=== PATIENT | male | born 1955 | race African-American/Black ===

== ENCOUNTER 2016-10-10 09:10 | Emergency (ER) | payer OTHER ==
[2016-10-10 09:17] VITALS: TEMP 98.3; BMI 29.8
[2016-10-10] MEDS ORDERED: PIPERACILLIN/TAZOB 4.5 GM/100 ML PRE-DOCKED IVPB ONE (10:00)
[2016-10-10] MEDS ORDERED: VANCOMYCIN 1,000 MG in DEXTROSE 5%-WATER - 250 ML IVPB ONE (10:04)
[2016-10-10] MEDS ORDERED: VANCOMYCIN 1 GRAM (PRE-DOCKED) 250 ML IVPB ONE (10:15)
[2016-10-10] MEDS ORDERED: PIPERACILLIN/TAZOB 4.5 GM 100 ML IVPB ONE (10:15)
[2016-10-10 10:18] LABS: BASOPHIL 1.1 % (0-2.0); EOSINOPHIL 1.7 % (0-4.5); MCH 28.9 pg (25.7-33.7); MCHC 32.7 g/dl (32.0-35.9); MEAN CELL VOLUME 88.2 fl (80-96); MEAN PLT VOLUME 8.1 fl (7.5-11.1); NEUTROPHILS 63.9 % (42.8-82.8); PLATELET COUNT 314 K/MM3 (134-434); RDW 13.8 % (11.9-15.9); WHITE BLOOD COUNT 9.8 K/mm3 (4.0-10.0)
--- NOTE | 2016-10-10 10:27 | PDOC ---
History of Present Illness - General Chief Complaint: Wound Infection Stated Complaint: LEG PAIN, POSSIBLE INFECTION Time Seen by Provider: 10/10/16 09:22 History Source: Patient Exam Limitations: No Limitations - History of Present Illness Initial Comments: 10/10/16 10:26 61-year-old male with history of diabetes presents to the ED with worsening once the right foot. Patient states was walking at night when he bumped into a speaker striking the tip of his right foot onto the item. Patient states initially had no pain but then developed a blister yesterday and now draining fluid concerning for infection. Patient also states redness and mild swelling to the area. Patient states last BGM was 114. Patient has history of right TMA done in 2013 with no postop complications. Patient is not followed by any physician in [place] and recently relocated here from [place]. Patient denies any sensory changes to the area, radiation of pain, fever or chills. Timing/Duration: getting worse Severity: moderate Associated Symptoms: denies: denies symptoms Past History - Travel Traveled outside of the country in the last 30 days: No - Past Medical History Allergies/Adverse Reactions: Allergies Allergy/AdvReac Type Severity Reaction Status Date / Time No Known Allergies Allergy Verified 10/10/16 09:18 Home Medications: Ambulatory Orders NK [No Known Home Medication] 10/10/16 Diabetes: Yes HTN: Yes - Psycho/Social/Smoking Cessation Hx Anxiety: No Suicidal Ideation: No Smoking History: Never smoked Hx Alcohol Use: No Drug/Substance Use Hx: No Substance Use Type: None Patient Lives Alone: No Lives with/in: spouse/SO Review of Systems - Review of Systems Able to Perform ROS?: No Constitutional: No: Symptoms Reported Respiratory: No: Symptoms reported ABD/GI: No: Symptoms Reported : No: Symptoms Reported Musculoskeletal: No: Symptoms Reported Integumentary: Yes: Erythema, Other (draining blister) Neurological: No: Symptoms reported Endocrine: No: Symptoms Reported Hematologic/Lymphatic: No: Symptoms Reported *Physical Exam - Vital Signs Last Vital Signs Temp Pulse Resp BP Pulse Ox 98.3 F 69 20 124/66 100 10/10/16 09:14 10/10/16 09:14 10/10/16 09:14 10/10/16 09:14 10/10/16 09:14 - Physical Exam General Appearance: Yes: Nourished, Appropriately Dressed. No: Apparent Distress HEENT: positive: EOMI, DEANDRA. negative: Pale Conjunctivae Respiratory/Chest: positive: Lungs Clear, Normal Breath Sounds. negative: Respiratory Distress, Accessory Muscle Use Cardiovascular: positive: Regular Rhythm, Regular Rate. negative: Murmur Gastrointestinal/Abdominal: positive: Soft. negative: Tenderness Integumentary: positive: Swelling (with erythema to the sole of right foot surrounding a 2cm draining blister. Serosangious fluid draining from small opening on blister. Mild edema to distal aspect of foot. Pt with rt TMA. ) Neurologic: positive: Normal Mood/Affect, Motor Strength 5/5 (ambulatory) ED Treatment Course - LABORATORY CBC & Chemistry Diagram: 10/10/16 10:10 10/10/16 10:10 - RADIOLOGY Radiology Studies Ordered: Category Date Time Status CHEST X-RAY PORTABLE* [RAD] Stat Radiology 10/10/16 09:59 Taken FOOT-RIGHT [RAD] Stat Radiology 10/10/16 10:08 Ordered Medical Decision Making - Medical Decision Making 10/10/16 10:05 Patient with history of right TMA and diabetes presents with wound to the distal aspect of right foot. Patient initially started as a blister now draining developing erythema and edema. Patient on exam had a draining blister that was slightly boggy to touch. Patient concerning for sepsis versus osteal. Patient ordered for labs, septic workup, will culture and foot x-ray. Patient also ordered for Vanco and Zosyn. 10/10/16 10:36 chest x-ray neg Laboratory Tests 10/10/16 10/10/16 10/10/16 10:10 10:10 10:30 WBC 9.8 Hgb 11.1 L Hct 33.9 L Plt Count 314 Neutrophils % 63.9 INR 1.13 Lactic Acid Pending 10/10/16 12:22 Laboratory Tests 10/10/16 10/10/16 10/10/16 10:10 10:30 10:30 Sodium 132 L Potassium 4.7 Chloride 100 Carbon Dioxide 23 Anion Gap 9 BUN 35 H Creatinine 3.3 H Creat Clearance w eGFR 19.22 Random Glucose 357 H* Lactic Acid 1.4 AST 18 ALT 30 Alkaline Phosphatase 151 H Total Protein 8.7 H Albumin 3.3 L Urine Protein 2+ H Urine Glucose (UA) 3+ H There are no prior studies for comparison. There is loss of bone density with soft tissue air seen in the anterior aspect of the foot remnant. There are degenerative changes. There is also partial obstruction which appears old of the fifth metatarsal base remnant. 10/10/16 13:53 Patient was seen by the hospitalist, Dr. Patel who hadn't been detailed discussion with the patient in regards to following up with his enterprise cloud architect for debridement. Patient also will follow-up with his PCP to discuss today's visit. Patient will have area redressed and discharged home. *DC/Admit/Observation/Transfer Diagnosis at time of Disposition: Diabetic foot ulcer Qualifiers: Diabetic foot ulcer location: other Laterality: right Non-pressure ulcer stage : unspecified non-pressure ulcer stage - Discharge Dispostion Disposition: HOME Condition at time of disposition: Good - Referrals Referrals: STAFF,NOT ON [Primary Care Provider] - - Patient Instructions Printed Discharge Instructions: DI for Diabetic Foot Ulcer Additional Instructions: Please keep area clean and dry with a sterile dressing. Please wear proper footwear as recommended. Please observe for worsening symptoms and if noted prior to your follow-up with your enterprise cloud architect please return to the nearest ED. Otherwise please follow-up with your enterprise cloud architect and PCP.
[2016-10-10 10:31] LABS: INR 1.13 (0.82-1.09); PROTHROMBIN TIME (PATIENT) 12.5 SEC (9.98-11.88)
[2016-10-10 10:38] LABS: URINE APPEARANCE SLCLOUDY; URINE BILIRUBIN NEGATIVE (NEGATIVE); URINE BLOOD NEGATIVE (NEGATIVE); URINE COLOR LTYELLOW; URINE GLUCOSE (UA) 3+ (NEGATIVE); URINE KETONE NEGATIVE (NEGATIVE); URINE LEUK ESTERASE NEGATIVE (NEGATIVE); URINE NITRITE NEGATIVE (NEGATIVE); URINE UROBILINOGEN NEGATIVE mg/dL (0.2-1.0)
[2016-10-10 10:40] LABS: ALBUMIN 3.3 g/dl (3.4-5.0); ALK PHOS 151 U/L (45-117); ANION GAP 9 (8-16); BILIRUBIN,TOTAL 0.3 mg/dL (0.2-1.0); CALCIUM 9.2 mg/dL (8.5-10.1); CO2 23 mmol/L (21-32); CREATININE 3.3 mg/dL (0.7-1.3); SGOT/AST 18 U/L (15-37); SGPT/ALT 30 U/L (12-78); TOT PROT 8.7 g/dl (6.4-8.2)
[2016-10-10 10:47] LABS: GLUCOSE,RANDOM 357 mg/dL (74-106)
[2016-10-10] MEDS ORDERED: SODIUM CHLORIDE 1,000 ML IV STA (10:47)
[2016-10-10 10:52] LABS: URINE PROTEIN 2+ (NEGATIVE)
[2016-10-10 11:17] LABS: URINE BACTERIA RARE /hpf (NONE SEEN); URINE HYALINE CAST 5 /lpf; URINE MUCUS RARE; URINE RBC 1 /hpf (0-3); URINE WBC 1 /hpf (3-5)
[2016-10-10 14:09] VITALS: BP 118/60; PULSE 64
--- NOTE | 2016-10-10 14:28 | CONSULT ---
Consultation: REQUESTING PROVIDER: CONSULT REQUEST: We have been asked to medically evaluate this patient for RLE plantar cellulitis s/p object falling on foot. HISTORY OF PRESENT ILLNESS: 61 y/o M HTN, DM2 and R TMA and CKD stage unknown. Patient presented to ED after speaker fell on his right forefoot 3 days prior and so he presented with localized pain and drainage from wound. REVIEW OF SYSTEMS: CONSTITUTIONAL: Absent: fever, chills, diaphoresis, generalized weakness, malaise, loss of appetite, weight change HEENT: Absent: rhinorrhea, nasal congestion, throat pain, throat swelling, difficulty swallowing, mouth swelling, ear pain, eye pain, visual changes CARDIOVASCULAR: Absent: chest pain, syncope, palpitations, irregular heart rate, lightheadedness , peripheral edema RESPIRATORY: Absent: cough, shortness of breath, dyspnea with exertion, orthopnea, wheezing, stridor, hemoptysis GASTROINTESTINAL: Absent: abdominal pain, abdominal distension, nausea, vomiting, diarrhea, constipation, melena, hematochezia GENITOURINARY: Absent: dysuria, frequency, urgency, hesitancy, hematuria, flank pain, genital pain MUSCULOSKELETAL: Absent: myalgia, arthralgia, joint swelling, back pain, neck pain SKIN: Absent: rash, itching, pallor HEMATOLOGIC/IMMUNOLOGIC: Absent: easy bleeding, easy bruising, lymphadenopathy, frequent infections ENDOCRINE: Absent: unexplained weight gain, unexplained weight loss, heat intolerance, cold intolerance NEUROLOGIC: Absent: headache, focal weakness or paresthesias, dizziness, unsteady gait, seizure, mental status changes, bladder or bowel incontinence PSYCHIATRIC: Absent: anxiety, depression, suicidal or homicidal ideation, hallucinations. PHYSICAL EXAMINATION Vital Signs - 24 hr 10/10/16 09:14 Temperature 98.3 F Pulse Rate 69 Respiratory 20 Rate Blood Pressure 124/66 O2 Sat by Pulse 100 Oximetry (%) GENERAL: Awake, alert, and fully oriented, in no acute distress. HEAD: Normal with no signs of trauma. EYES: Pupils equal, round and reactive to light, extraocular movements intact, sclera anicteric, conjunctiva clear. No lid lag. EARS, NOSE, THROAT: Ears normal, nares patent, oropharynx clear without exudates. Moist mucous membranes. NECK: Normal range of motion, supple without lymphadenopathy, JVD, or masses. LUNGS: Breath sounds equal, clear to auscultation bilaterally. No wheezes, and no crackles. No accessory muscle use. HEART: Regular rate and rhythm, normal S1 and S2 without murmur, rub or gallop. ABDOMEN: Soft, nontender, not distended, normoactive bowel sounds, no guarding, no rebound, no masses. No hepatomegaly or splenomegaly. MUSCULOSKELETAL: Normal range of motion at all joints. No bony deformities or tenderness. No CVA tenderness. UPPER EXTREMITIES: 2+ pulses, warm, well-perfused. No cyanosis. No clubbing. Cap refill <2 seconds. No peripheral edema. LOWER EXTREMITIES: Right TMA with hyperkeratosis ,3cm plantar hematoma at 1st distal tarsal area with serous drainage, witch is soft and nontender.2+ pulses, warm, perfused. No calf tenderness. No peripheral edema. Left foot longitudinal scar medial aspect. NEUROLOGICAL: Cranial nerves II-XII intact. Normal speech. PSYCHIATRIC: Cooperative. Good eye contact. Appropriate mood and affect. SKIN: Warm, dry, normal turgor, no rashes or lesions noted. Laboratory Results - last 24 hr 10/10/16 10/10/16 10/10/16 10:10 10:10 10:10 WBC 9.8 RBC 3.85 L Hgb 11.1 L Hct 33.9 L MCV 88.2 MCH 28.9 MCHC 32.7 RDW 13.8 Plt Count 314 MPV 8.1 Neutrophils % 63.9 Lymphocytes % 23.2 Monocytes % 10.1 Eosinophils % 1.7 Basophils % 1.1 INR 1.13 Sodium 132 L Potassium 4.7 Chloride 100 Carbon Dioxide 23 Anion Gap 9 BUN 35 H Creatinine 3.3 H Creat Clearance w eGFR 19.22 Random Glucose 357 H* Lactic Acid Calcium 9.2 Total Bilirubin 0.3 AST 18 ALT 30 Alkaline Phosphatase 151 H Total Protein 8.7 H Albumin 3.3 L Urine Color Urine Appearance Urine pH Urine Protein Urine Glucose (UA) Urine Ketones Urine Blood Urine Nitrite Urine Bilirubin Urine Urobilinogen Ur Leukocyte Esterase Urine RBC Urine WBC Ur Epithelial Cells Urine Bacteria Hyaline Casts Urine Mucus Blood Type Antibody Screen 10/10/16 10/10/16 10/10/16 10:10 10:30 10:30 WBC RBC Hgb Hct MCV MCH MCHC RDW Plt Count MPV Neutrophils % Lymphocytes % Monocytes % Eosinophils % Basophils % INR Sodium Potassium Chloride Carbon Dioxide Anion Gap BUN Creatinine Creat Clearance w eGFR Random Glucose Lactic Acid 1.4 Calcium Total Bilirubin AST ALT Alkaline Phosphatase Total Protein Albumin Urine Color Ltyellow Urine Appearance Slcloudy Urine pH 5.0 Urine Protein 2+ H Urine Glucose (UA) 3+ H Urine Ketones Negative Urine Blood Negative Urine Nitrite Negative Urine Bilirubin Negative Urine Urobilinogen Negative Ur Leukocyte Esterase Negative Urine RBC 1 Urine WBC 1 Ur Epithelial Cells Rare Urine Bacteria Rare Hyaline Casts 5 Urine Mucus Rare Blood Type B POSITIVE Antibody Screen Negative ASSESSMENT/PLAN: Dispo: No sign of acute infection, one dose of Vancomycin and as per renal dosing q48h so recommend follow up with podiatry in 2-3 days if no improvement may need debribement. Uncontrolled DM2 patient advised to keep strict diabetic diet and medication adherence. HTN And CKD. Patient counselled on the complications of diabetes and the high risk of dialysis. Follow up with PMD. Thank you for this consultative opportunity. Problem List - Problems (1) Unspecified open wound, right foot, initial encounter Assessment/Plan: s/p trauma Code(s): S91.301A - UNSPECIFIED OPEN WOUND, RIGHT FOOT, INITIAL ENCOUNTER (2) DM2 (diabetes mellitus, type 2) Code(s): E11.9 - TYPE 2 DIABETES MELLITUS WITHOUT COMPLICATIONS Qualifiers: Diabetes mellitus complication status: with neurologic complications Diabetes mellitus complication detail: with autonomic neuropathy (3) HTN (hypertension) Code(s): I10 - ESSENTIAL (PRIMARY) HYPERTENSION Qualifiers: Hypertension type: essential hypertension Qualified Code(s): I10 - Essential (primary) hypertension (4) CKD (chronic kidney disease) stage 4, GFR 15-29 ml/min Code(s): N18.4 - CHRONIC KIDNEY DISEASE, STAGE 4 (SEVERE) Visit type - Emergency Visit Emergency Visit: Yes Care time: The patient presented to the Emergency Department on the above date and was hospitalized for further evaluation of their emergent condition. - New Patient This patient is new to me today: Yes Date on this admission: 10/10/16 - Critical Care Critical Care patient: No
--- NOTE | 2016-10-10 19:38 | EKG ---
Test Reason : Blood Pressure : / mmHG Vent. Rate : 066 BPM Atrial Rate : 066 BPM P-R Int : 150 ms QRS Dur : 076 ms QT Int : 394 ms P-R-T Axes : 054 -21 017 degrees QTc Int : 413 ms NORMAL SINUS RHYTHM LEFT VENTRICULAR HYPERTROPHY WITH REPOLARIZATION ABNORMALITY BORDERLINE ECG NO PREVIOUS ECGS AVAILABLE Confirmed by CHUCK LAROSE MD ([id number]) on 10/10/2016 7:38:00 PM Referred By: Confirmed By:CHUCK LAROSE MD
== END 2016-10-10 14:07 | disposition home or self-care (01) ==
LOC: JER 09:10
PROC: 3E0337Z Introduction of Electrolytic and Water Balance Substance into Peripheral Vein, Percutaneous Approach (ICD-10-PCS; principal; 2016-10-10)
PROC: 3E03329 Introduction of Other Anti-infective into Peripheral Vein, Percutaneous Approach (ICD-10-PCS; 2016-10-10)
DX: E11.621 Type 2 diabetes mellitus with foot ulcer (principal); L97.511 Non-pressure chronic ulcer of other part of right foot limited to breakdown of skin; Z89.422 Acquired absence of other left toe(s)
CPT/HCPCS: 36415; 71010-TC; 73630-TC-RT; 80053; 81003; 81015; 83605; 85025; 85610; 86850; 86900; 86901; 87040; 87070; 87077; 87186; 87205; 93005; 93010; 99283-25